=== PATIENT | female | born 1955 | race Caucasian/White ===

== ENCOUNTER → 2022-05-06 | Outpatient (CLI) | payer BC ==
[~2022-05-06] MED LIST: B COMPLEX #11 TA1 PO; BIOTIN10000 MC1 PO; CALCIUM CITRAT950 MG PO; CALCIUM CITRATE1 TA7 PO; CENTRUM SILVER1 TAB PO; FOSAMAX 70MG TA70 MG PO; KRILL OIL 1,001 EAC1 PO; LUTEIN20 M1 PO; MASON NATURAL2000 IU PO; NATURE'S BLEND600 M2 PO; NIACIN500 M4 PO; OMEGA-3 FISH1000 MG PO; PERCOCET 325 MG1 TA2 PO; PHARMASSURE ZIN50 MG PO; VITAMINC1000TA PO
== END ==
LOC: COL.LAB 11:03
DX: N81.3 Complete uterovaginal prolapse (principal)

== ENCOUNTER 2022-05-08 06:57 | Day surgery (SDC) | payer BC ==
[~2022-05-08] VITALS: Ht 149.9 cm; Wt 72.5 kg
[2022-05-08] VITALS (11 sets, daily range): BP systolic 92–136; BP diastolic 43–75; PULSE 48–95; TEMP 97.5–99.1
[2022-05-08] MEDS ORDERED: FOSAMAX 70MG TA70 MG PO (08:22)
[2022-05-08] MEDS ORDERED: KRILL OIL 1,001 EAC1 PO (08:25)
[2022-05-08] MEDS ORDERED: OMEGA-3 FISH1000 MG PO (08:26)
[2022-05-08] MEDS ORDERED: CENTRUM SILVER1 TAB PO (08:27)
[2022-05-08] MEDS ORDERED: VITAMINC1000TA PO (08:28)
[2022-05-08] MEDS ORDERED: CALCIUM CITRAT950 MG PO (08:28)
[2022-05-08] MEDS ORDERED: B COMPLEX #11 TA1 PO (08:29)
[2022-05-08] MEDS ORDERED: MASON NATURAL2000 IU PO (08:29)
[2022-05-08] MEDS ORDERED: PHARMASSURE ZIN50 MG PO (08:30)
--- NOTE | 2022-05-08 08:30 | NUR ---
Pt taken via cart to OR by YOBANI Cates for scheduled surgery. Belongings bags brought over to PACU.
[2022-05-08] MEDS ORDERED: LUTEIN20 M1 PO (08:31)
[2022-05-08] MEDS ORDERED: NIACIN500 M4 PO (08:32)
[2022-05-08] MEDS ORDERED: BIOTIN10000 MC1 PO (08:32)
[2022-05-08] MEDS ORDERED: NATURE'S BLEND600 M2 PO (08:34)
[2022-05-08] MEDS ORDERED: CALCIUM CITRATE1 TA7 PO (08:34)
[2022-05-08] MEDS ORDERED: PERCOCET 325 MG1 TA2 PO (09:48)
--- NOTE | 2022-05-08 13:00 | NUR ---
Pt doing good since arriving to the floor from surgery. She is drowsy but does wake easily when being spoken to. Oriented pt and spouse to the room and educated on post op care. VSS. Moore to dependent drainage, clear yellow urine. Lap sites x5 that are well approximated, no dressings. IV to right hand with fluids infusing. Lung sounds clear, heart rate regular and SCDs on bilaterally.
--- NOTE | 2022-05-08 16:57 | NUR ---
Pt continues to do well. She has tolerated clear liquids, general tray ordered for her for dinner. Pt has sat up and stood at bedside. She did well. Slight increase in pain with this, but pt reports most of her pain is when she coughs. No needs at this boyd, will continue to monitor
[2022-05-09 04:34] VITALS: BP 102/53; PULSE 69; TEMP 98.3
--- NOTE | 2022-05-09 06:21 | NUR ---
PATIENT RESTED QUIETLY THIS SHIFT. PATIENT RECEIVED NO PRNS AND VOICED NO CONCERNS. PATIENT SMITH DISCONTINUED THIS AM PER ORDERS.
[2022-05-09 07:12] VITALS: BP 100/58; PULSE 60; TEMP 98.8
--- NOTE | 2022-05-09 10:06 | NUR ---
PT SITTING IN BED. REPORTS PAIN IN RIGHT SIDE OF THE ABDOMEN, PROVIDER AWARE. PT DENIES ANY OTHER TYPE OF PAIN. NO FURTHER NEEDS IDENTIFIED.
[2022-05-09 10:41] VITALS: BP 116/61; PULSE 62; TEMP 98.1
--- NOTE | 2022-05-09 11:32 | NUR ---
PT IV DISCARDED. CATHETER INTACT. PT REPORTS SOME PAIN BUT TOLERABLE. PT DENIES ANY OTHER PAIN. REVIEWED DISCHARGED INSTRUCTIONS WITH PT. PT VERBALIZES UNDERSTANDING. PT HAS BEEN VOIDING WITHOUT COMPLICATIONS SINCE CATHETHER WAS REMOVED. PT AMBULATED IN PATERSONS PAIN REMAINED TOLERABLE.
--- NOTE | 2022-05-09 12:15 | NUR ---
Pt escorted out at this time
== END 2022-05-09 12:15 | disposition home or self-care (01) ==
LOC: SDCO 06:57 → SURG 12:45 → SDCO 05-09 12:15
DX: N81.3 Complete uterovaginal prolapse (principal); D27.1 Benign neoplasm of left ovary; D27.0 Benign neoplasm of right ovary; I87.8 Other specified disorders of veins; Z79.899 Other long term (current) drug therapy; N39.46 Mixed incontinence; Z79.82 Long term (current) use of aspirin
CPT/HCPCS: OP; A4314; C1781; J0690; J1100; J2175; J2704; J2710; J3010; J7120